=== PATIENT | female | born 1985 ===

== ENCOUNTER 2018-07-15 11:08 | Emergency (ER) | payer MEDICAID ==
[2018-07-15 11:39] VITALS: BP 119/80; PULSE 86; RESP 16; TEMP 97.3; O2SAT 98
--- NOTE | 2018-07-15 12:10 | C.PDOC ---
History Of Present Illness 33 y/o female pt presents to the ER c/o right wrist pain that radiates up the right arm for x2 weeks. Associated sx includes mild swelling on right wrist. Pt reports she tried using a wrist jose luis wrap and takes Tylenol with no relief. Pt denies weakness, numbness and tingling sensation in her right wrist. 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 Time Seen by Provider: 07/15/18 11:23 Chief Complaint (Nursing): Upper Extremity Problem/Injury History Per: Patient History/Exam Limitations: no limitations Onset/Duration Of Symptoms: Days (x2 weeks) Current Symptoms Are (Timing): Still Present Past Medical History Reviewed: Historical Data, Nursing Documentation, Vital Signs Vital Signs: Last Vital Signs Temp 97.3 F L 07/15/18 11:15 Pulse 86 07/15/18 11:15 Resp 16 07/15/18 11:15 BP 119/80 07/15/18 11:15 Pulse Ox 98 07/15/18 11:15 Family History: States: No Known Family Hx - Social History Hx Alcohol Use: No Hx Substance Use: No - Immunization History Hx Tetanus Toxoid Vaccination: No Hx Influenza Vaccination: No Hx Pneumococcal Vaccination: No Review Of Systems Except As Marked, All Systems Reviewed And Found Negative. Musculoskeletal: Positive for: Arm Pain (right; radiated from right wrist pain ), Other (right wrist pain; mild swelling of the right wrist) Neurological: Negative for: Weakness, Numbness, Other (tingling sensation in right wrist ) Physical Exam - Physical Exam Appears: Well, Non-toxic, No Acute Distress Skin: Warm, Dry Head: Atraumatic, Normacephalic Eye(s): bilateral: Normal Inspection Extremity: Tenderness ( tender on right volar wrist ), Capillary Refill (<2 sec), No Deformity, Swelling (mild; right volar wrist ), Other (+Ming test , + Tinel and Phalen teststo the right) Extremity: Right: Normal Color And Temperature (wrist) Pulses: Right Radial: Normal Neurological/Psych: Oriented x3, Normal Speech, Normal Motor, Normal Sensation ED Course And Treatment O2 Sat by Pulse Oximetry: 98 (RA) Pulse Ox Interpretation: Normal - Other Rad right wrist X-Ray: Read By Radiologist Interpretation: Accession No. : [id number]. Patient Name / ID : AVIVA HAMPTON / [id number]. Exam Date : 07/15/2018 11:54:16 ( Approved ). Study Comment : Sex / Age : F / 33Y. Creator : Ajay Edouard MD. Dictator : Ajay Edouard MD. Hog Worker : Work Adjustment Instructor : Ajay Edouard MD. Approver2 : Report Date : 07/15/2018 16:22:14. My Comment : . Date of service: 07/15/2018. PROCEDURE: Right Wrist Radiographs. . HISTORY: atraumatic pain. COMPARISON: None. TECHNIQUE: 4 views obtained. FINDINGS: BONES: Normal. No fracture. JOINTS: Normal. No dislocation. SOFT TISSUES: Normal. OTHER FINDINGS: None. IMPRESSION: Normal right wrist radiographs. Progress Note: Plans: -- right wrist XR Disposition - Disposition Referrals: Layla Mendez MD [Staff Provider] - Disposition: HOME/ ROUTINE Disposition Time: 12:23 Condition: STABLE Additional Instructions: Follow up with hand specialist Dr. Mendez within 1-2 days. Return to ED if feel worse. Prescriptions: Ibuprofen [Motrin Tab] 600 mg PO Q8 #30 tab Instructions: De Quervain's Tenosynovitis, Carpal Tunnel Syndrome (DC), Carpal Tunnel Exercises Forms: [employer] (Kiswahili) - Clinical Impression Clinical Impression: Wrist pain - PA / STATION COOK / Resident Statement / has reviewed & agrees with the documentation as recorded. - Scribe Statement The provider has reviewed the documentation as recorded by the Tamra Cruz Do All medical record entries made by the Scribe were at my direction and personally dictated by me. I have reviewed the chart and agree that the record accurately reflects my personal performance of the history, physical exam, medical decision making, and the department course for this patient. I have also personally directed, reviewed, and agree with the discharge instructions and disposition.
--- NOTE | 2018-07-15 16:26 | RAD ---
Date of service: 07/15/2018 PROCEDURE: Right Wrist Radiographs. HISTORY: atraumatic pain COMPARISON: None. TECHNIQUE: 4 views obtained. FINDINGS: BONES: Normal. No fracture. JOINTS: Normal. No dislocation. SOFT TISSUES: Normal. OTHER FINDINGS: None. IMPRESSION: Normal right wrist radiographs.
== END 2018-07-15 12:32 | disposition home or self-care (01) ==
LOC: C.ER 11:08
DX: M25.531 Pain in right wrist (principal)